=== PATIENT | female | born 1965 | race Caucasian/White ===

== ENCOUNTER → 2017-04-08 | Outpatient (CLI) | payer BC ==
[~2017-04-08] MED LIST: CLARITIN D TAB1 TAB PO; FIORICET 325 MG1 TA1 PO; NAPROSYN500 MG PO; NORCO 325 MG-51 TAB PO; ZOLOFT 50MG50 MG PO
== END ==
LOC: MC.RAD 09:15
DX: Z12.31 Encounter for screening mammogram for malignant neoplasm of breast (principal)

== ENCOUNTER 2017-04-15 11:46 | Day surgery (SDC) | payer BC ==
[~2017-04-15] VITALS: Ht 162.6 cm; Wt 59.5 kg
[2017-04-15 12:04] VITALS: BP 126/92; PULSE 80; TEMP 98.1
[2017-04-15 14:00] VITALS: BP 116/81; PULSE 85; TEMP 97.1
[2017-04-15 14:15] VITALS: BP 120/92; PULSE 84
[2017-04-15 14:30] VITALS: BP 107/84; PULSE 78
[2017-04-15 15:42] VITALS: BP 111/67; PULSE 76
== END 2017-04-15 14:49 | disposition home or self-care (01) ==
LOC: SDCO 11:46
DX: Z12.11 Encounter for screening for malignant neoplasm of colon (principal); Z88.1 Allergy status to other antibiotic agents; Z88.6 Allergy status to analgesic agent; K64.0 First degree hemorrhoids
CPT/HCPCS: OP; J2250; J3010; J7030

== ENCOUNTER → 2018-04-21 | Outpatient (CLI) | payer BC | LOC: MC.RAD 07:51 | DX: Z12.31 Encounter for screening mammogram for malignant neoplasm of breast (principal) ==

== ENCOUNTER 2019-08-10 08:25 | Day surgery (SDC) | payer BC ==
[~2019-08-10] VITALS: Ht 162.6 cm; Wt 57.7 kg
[2019-08-10] VITALS (13 sets, daily range): BP systolic 78–120; BP diastolic 46–80; PULSE 65–86; TEMP 97.7–98.2
--- NOTE | 2019-08-10 13:42 | NUR ---
Pt to [facility] via cart from OR. Pt drowsy, but awakens easily to verbal stimuli. Pt denies pain or nausea. Pt takes few sips of water without difficulties. in room. Incision to right upper back has carrera set intact. Site clean and dry. Will continue to monitor. Call light within reach.
--- NOTE | 2019-08-10 13:57 | NUR ---
Large amount of swelling (softball size) noted to right upper back around incision. Swelling is firm. notified and will be into see pt soon. Ice pack applied. Pt made NPO again. Educated pt and family on possible hematoma. They voice understanding.
--- NOTE | 2019-08-10 14:12 | NUR ---
into see pt and agree's pt has a hematoma. exits room to obtain portable US machine.
[2019-08-10] MEDS ORDERED: MOTRIN 600600 MG/TAB PO ×2 (14:15→16:08)
[2019-08-10] MEDS ORDERED: NORCO 325 MG-51 TAB PO (14:15)
--- NOTE | 2019-08-10 14:20 | NUR ---
at bedside using US machine at this time. Pt's blood pressure drops and pt is pale. Pt denies pain, nausea, or dizziness. 2nd bag LR 1000ml hung and opened wide. 2nd IV site to right hand started by Luzmaria BARKSDALE. Pt will be returning to OR for evacuation of hematoma esmer. Pt and agree and voice understanding.
--- NOTE | 2019-08-10 14:26 | NUR ---
Pt assisted to bed thao. Pt voids large amount without difficulties. Pericare provided. IV fluids slowed to 200ml/hr
--- NOTE | 2019-08-10 14:30 | NUR ---
Pt continues to rest. Denies needs at this time. Call light within reach.
--- NOTE | 2019-08-10 14:45 | NUR ---
Pt continues to rest. Denies needs. Call light within reach.
[2019-08-10] MEDS ORDERED: ULTRAM 50MG TAB50 MG PO (16:08)
--- NOTE | 2019-08-10 16:35 | NUR ---
TO RM 3 PER CART FROM PACU. ALERT ORIENTED X3, TALKING WITH STAFF AND . INCISION ON BACK CLEAN DRY INTACT WITH MACIAS SET. RECEIVED WATER AND TAKING SIPS. PATIENTS FATHER IN LAW TOOK PRESCRIPTION TO GET FILLED.
--- NOTE | 2019-08-10 16:45 | NUR ---
RECEIVED CANDIE. PUDDING AND MUFFIN. SITTING UP TALKING WITH .
--- NOTE | 2019-08-10 17:00 | NUR ---
ATE 100% AND TOLERATED WELL.
--- NOTE | 2019-08-10 17:30 | NUR ---
PATIENT AND RECEIVED DISCHARGE INSTRUCTIONS AND VERBALIZED UNDERSTANDING. DISCONTINUED IV/INT BILAT HANDS.
--- NOTE | 2019-08-10 17:45 | NUR ---
DISCHARGED PER WC BY NURSING STAFF TO PRIVATE CAR IN CARE OF .
== END 2019-08-10 18:00 | disposition home or self-care (01) ==
LOC: SDCO 08:25
DX: D21.6 Benign neoplasm of connective and other soft tissue of trunk, unspecified (principal); M96.840 Postprocedural hematoma of a musculoskeletal structure following a musculoskeletal system procedure; Z88.5 Allergy status to narcotic agent; Z88.1 Allergy status to other antibiotic agents; F32.9 Major depressive disorder, single episode, unspecified; Z80.9 Family history of malignant neoplasm, unspecified
CPT/HCPCS: J1885; J2250; J2405; J2704; J3010; J7120

== ENCOUNTER 2021-05-26 08:37 | Emergency (ER) | payer BC ==
[~2021-05-26] VITALS: Ht 160 cm; Wt 58.6 kg
[~2021-05-26 08:37] MED LIST changes: +MOTRIN 600600 MG/TAB PO; +ULTRAM 50MG TAB50 MG PO
[2021-05-26 08:42] VITALS: BP 129/87; TEMP 98.1
[2021-05-26 09:33] VITALS: PULSE 69
== END 2021-05-26 09:33 | disposition home or self-care (01) ==
LOC: COL.ER 08:37
DX: L08.9 Local infection of the skin and subcutaneous tissue, unspecified (principal); Z88.1 Allergy status to other antibiotic agents

== ENCOUNTER 2022-11-03 01:07 | Inpatient (IN) | payer BC ==
[~2022-11-03] VITALS: Ht 160 cm; Wt 58.7 kg
[2022-11-03] VITALS (10 sets, daily range): BP systolic 113–150; BP diastolic 74–87; PULSE 73–105; TEMP 98.2–98.6
[2022-11-03 01:38] LABS: COLLECTION METHOD CLEAN CATCH
[2022-11-03 01:41] LABS: BASO % 0.3 % (0.0-2.0); EOS % 0.4 % (0.0-4.0); GRAN % 77.3 % (42.2-75.2); HEMATOCRIT 42.4 % (37.0-47.0); HEMOGLOBIN 13.8 g/dl (12.5-16.0); LYMPH # 1.9 K/mm3 (1.2-3.4); LYMPH % 18.1 % (20.0-51.0); MEAN CELL VOLUME 84 fl (80.0-100.0); MEAN CORPUSCULAR HEMOGLOBIN 27 pg (27-31); MEAN CORPUSCULAR HGB CONC 33 g/dl (33.0-37.0); MEAN PLATELET VOLUME 9.6 fl (7.4-10.4); MONO # 0.4 K/mm3 (0.1-0.6); MONO % 3.5 % (1.7-9.3); PLATELET COUNT 285 K/mm3 (130-400); RED BLOOD COUNT 5.04 M/mm3 (4.10-5.30); REDCELL DISTRIBUTION WIDTH-CV 13.5 % (11.5-14.5)
[2022-11-03 01:58] LABS: ALANINE AMINOTRANSFERASE 18 U/L (0-55); ALBUMIN 4.2 gm/dL (3.5-5.0); ALKALINE PHOSPHATASE 81 U/L (40-150); ANION GAP 14 mmol/L (7-16); AST,SGOT 25 U/L (5-34); BILIRUBIN,TOTAL 0.7 mg/dL (0.2-1.2); BLOOD UREA NITROGEN 14 mg/dL (10-20); CALCIUM 9.1 mg/dL (8.4-10.2); CARBON DIOXIDE 24 mmol/L (22-29); CHLORIDE 102 mmol/L (98-107); CREATININE, serum 0.68 mg/dL (0.57-1.11); GLUCOSE 136 mg/dL (70-99); LIPASE 19 U/L (8-78); POTASSIUM 3.7 mmol/L (3.5-4.5); SODIUM 140 mmol/L (136-145); TOTAL PROTEIN 7.6 gm/dL (6.2-8.1)
[2022-11-03 02:02] LABS: PH 8.5 (5.0-8.5); URINE APPEARANCE Cloudy (CLEAR/HAZY); URINE BACTERIA Moderate /hpf (NONE SEEN); URINE BLOOD 1+ (NEGATIVE); URINE COLOR Yellow (YELLOW); URINE GLUCOSE Negative (NEGATIVE); URINE KETONE Negative (NEGATIVE); URINE NITRATE Negative (NEGATIVE); URINE PROTEIN(semi-quant) Negative (NEGATIVE); URINE UROBILINOGEN 0.2 E.U/dL (0.2-1.0)
[2022-11-03 02:03] LABS: SQUAMOUS EPITHELIAL 0-2 /hpf (0-10); URINE RBC 0-2 /hpf (0-2); URINE WBC 0-2 /hpf (0-2)
[2022-11-03 02:57] LABS: TROPONIN-I < 0.010 ng/mL (0.00-0.033)
[2022-11-03] MEDS ORDERED: NORVASC 5MG5 MG/TAB PO (03:53)
[2022-11-03] MEDS ORDERED: SINGULAIR 110 MG/TAB PO (03:54)
[2022-11-03] MEDS ORDERED: VOLTAREN 75 DR75 MG PO (03:54)
[2022-11-03] MEDS ORDERED: FLONASE NASAL S16 GM NS (03:54)
[2022-11-03] MEDS ORDERED: ZYRTEC5 MG PO (03:55)
--- NOTE | 2022-11-03 04:53 | NUR ---
PATIENT ARRIVED TO FLOOR @ 04:30AM. VSS. A&OX4. PATIENT COMPLAINS OF PAIN 05/03. RECEIVED PAIN MEDS DOWN IN ER BEFORE ARRIVAL. PATIENT HAS NO OTHER COMPLAINTS AT THIS TIME. PATIENT SETTLED IN BED AND RESTING. CALL LIGHT IN REACH.
--- NOTE | 2022-11-03 07:08 | NUR ---
NG TUBE PLACED PER ORDER. PATIENT TOLERATED OK. 100ML CLEAR FLUID OUT. LOW SUCTION.
--- NOTE | 2022-11-03 08:01 | NUR ---
pt resting in bed, reports pain increased after NG placed. there is 200ml of light pink output in the NG canister. bowel sounds are hypoactive, denies passing gas. fluids are infusing into her left AC at 125ml/hr. assisted pt to bathroom, gait steady. call light in reach.
--- NOTE | 2022-11-03 08:39 | NUR ---
pt reports increased pain and nausea. zofran given per emar. contacted dr meyers about changing frequency of zofran and morphine, new orders implemented.
--- NOTE | 2022-11-03 09:48 | NUR ---
pt resting comfortably in bed, reports pain and nausea have subsided.
--- NOTE | 2022-11-03 11:29 | NUR ---
pt reports pain relieved with dilauded. left the room and heard pt gagging, upon entry pt was hurled over basin producing saliva. no actual emesis. phenergan started.
--- NOTE | 2022-11-03 13:06 | NUR ---
SW met with patient to complete intake. Patient states that she lives in [facility] with her [phone] whom she appointed as DPOA on this day. Patient states that she does not utilize DME, is independent with ADL's and does not utilize HH services at this time. PCP is Dr. Antony. Patient states that she plans to return to her home upon DC. SW will continue to follow. DC plan: Home
--- NOTE | 2022-11-03 19:43 | NUR ---
REPORT RECIEVED FROM STEPHANIE BARKSDALE. PT RESTING IN BED WITH FAMILY AT BEDSIDE. PT REPORTED PAIN, PRN ADMINISTERED. NG IN PLACE TO LOW INT SUCTION. IVF RUNNING @ 125ML/HR. CALL LIGHT IN PLACE. ALL NEEDS MET AT THIS TIME.
--- NOTE | 2022-11-03 20:33 | NUR ---
PT RESTING IN BED. FAMILY LEFT FOR THE NIGHT. PRN RESOLVED PT PAIN AND SHE RATES PAIN A 0/10 NOW. NO OTHER CONCERNS OR COMPLAINTS. CALL LIGHT IN PLACE. ALL NEEDS MET AT THIS TIME.
--- NOTE | 2022-11-03 20:54 | NUR ---
SHIFT ASSESSMENT COMPLETE, SEE DOCUMENTATION.
[2022-11-04] VITALS (12 sets, daily range): BP systolic 133–150; BP diastolic 77–90; PULSE 74–96; TEMP 98–98.8
[2022-11-04 07:06] LABS: BASO % 0.2 % (0.0-2.0); EOS % 0.1 % (0.0-4.0); GRAN % 74.4 % (42.2-75.2); HEMOGLOBIN 12.3 g/dl (12.5-16.0); LYMPH # 1.6 K/mm3 (1.2-3.4); LYMPH % 19.2 % (20.0-51.0); MEAN CELL VOLUME 83 fl (80.0-100.0); MEAN CORPUSCULAR HEMOGLOBIN 28 pg (27-31); MEAN CORPUSCULAR HGB CONC 33 g/dl (33.0-37.0); MEAN PLATELET VOLUME 9.9 fl (7.4-10.4); MONO # 0.5 K/mm3 (0.1-0.6); MONO % 5.9 % (1.7-9.3); PLATELET COUNT 280 K/mm3 (130-400); RED BLOOD COUNT 4.43 M/mm3 (4.10-5.30); REDCELL DISTRIBUTION WIDTH-CV 13.3 % (11.5-14.5)
[2022-11-04 07:09] LABS: HEMATOCRIT 36.9 % (37.0-47.0)
[2022-11-04 07:37] LABS: ALBUMIN 3.5 gm/dL (3.5-5.0); BILIRUBIN,TOTAL 0.9 mg/dL (0.2-1.2); CALCIUM 8.7 mg/dL (8.4-10.2); CREATININE, serum 0.56 mg/dL (0.57-1.11); POTASSIUM 3.2 mmol/L (3.5-4.5); TOTAL PROTEIN 6.2 gm/dL (6.2-8.1)
[2022-11-04] MEDS ORDERED: ATARAX 25MG25 MG/TAB PO (09:01)
[2022-11-04] MEDS ORDERED: VITAMINC500CH PO (09:05)
[2022-11-04] MEDS ORDERED: MELATONIN5 M1 PO (09:09)
--- NOTE | 2022-11-04 09:23 | NUR ---
Vacuum Forming Machine Operator met with Patient at bedside to conduct Care Managment Assessment and discuss discharge planning. Patient lives with her in [place], [place] and is established with Dr. Antony for PCP. Patient is covered by [facility] for insurance and requests discharge medications be sent to [facility]. Patient denies the use of DME and endorses independent ADL/IADLs prior to admission. Patient does not have DPOA and declines form at this time. Discharge Plan: Home
--- NOTE | 2022-11-04 09:42 | NUR ---
PT UP TO BR VOIDED AND RETURNED TO BED. SBA. IV DILAUDID FOR PAIN. NG TUBE TO LIS WITH MINIMAL DRAINAGE IN COLLECTION. PT IS A/O X3. IV TO LFA INFUSING PER PUMP. ABDOMEN REMAINS TENDER AND DISTENDED.
--- NOTE | 2022-11-04 10:29 | NUR ---
Initial visit; Patient thanked [employer] for offering empathy, kindness and prayer for healing for Shavon and [employer] will keep her in her prayers by request. [employer] will follow-up while patient is here.
--- NOTE | 2022-11-04 17:45 | NUR ---
ROUNDED ON PT SEE COMPUTER FOR ORDERS. PT ADVANCING TO CLEAR LIQUIDS, NG CLAMPED.
--- NOTE | 2022-11-04 19:15 | NUR ---
REPORT RECIEVED FROM FIDEL BARKSDALE. PT RESTING IN BED WITH FAMILY AT BEDSIDE. PT EATING DINNER. NO C/O PAIN OR DISCOMFORT. CALL LIGHT IN PLACE. ALL NEEDS MET AT THIS TIME.
--- NOTE | 2022-11-04 20:24 | NUR ---
SHIFT ASSESSMENT COMPLETE, SEE DOCUMENTATION. PT RESTING IN BED WITH FAMILY AT BEDSIDE. PT DENIES PAIN OR DISCOMFORT AND REPORTS SHE FEELS BETTER THAN LAST NIGHT. CALL LIGHT IN PLACE. ALL NEEDS MET AT THIS TIME.
[2022-11-05 01:06] VITALS: BP_SYST 133
--- NOTE | 2022-11-05 02:34 | NUR ---
SPOKE WITH PT. SHE STATES SHE FEELS PAIN WHEN SHE NEEDS TO PASS GAS OR HAVE A BOWEL MOVEMENT. PT REPORTS SHE HAS HAD TWO BOWEL MOVEMENTS. PT STATES SHE IS FEELING MUCH BETTER. CALL LIGHT IN PLACE. ALL NEEDS MET AT THIS TIME.
[2022-11-05 03:21] VITALS: BP 128/80; PULSE 76; TEMP 97.8
[2022-11-05 04:45] VITALS: BP_SYST 128
[2022-11-05 07:36] VITALS: BP 145/90; PULSE 82; TEMP 98.2
--- NOTE | 2022-11-05 08:30 | NUR ---
PT RESTING IN BED A/OX4 WITH PAIN 2/10 THAT PT STATES IS GAS PAIN. DR. ROMERO CALLED TO DISCUSS PT STATUS. ORDERS TO REMOVE NG TUBE AND ADVANCE DIET TO FULL LIQUID. NG TUBE DISCONTINUED AT THIS TIME. NO ISSUES OR QUESTIONS. WILL CONTINUE TO MONITOR.
--- NOTE | 2022-11-05 10:23 | NUR ---
Follow-up visit; Patient thanked for offering a [place] and Prayer this morning. Shavon says she likes [employer] to visit. finds it a [place] to meet with Shavon and will follow-up while she is here.
[2022-11-05 11:46] VITALS: BP 145/82; PULSE 77; TEMP 98.4
[2022-11-05 13:16] LABS: CALCIUM 8.7 mg/dL (8.4-10.2); CREATININE, serum 0.54 mg/dL (0.57-1.11)
[2022-11-05 13:40] LABS: POTASSIUM 2.9 mmol/L (3.5-4.5)
[2022-11-05 16:39] VITALS: BP 148/84; PULSE 76; TEMP 98.4
--- NOTE | 2022-11-05 16:54 | NUR ---
DR. ROMERO CALLED TO [facility] PT STATUS. WILL PLACE ORDERS FOR DISCHARGE.
--- NOTE | 2022-11-05 17:30 | NUR ---
DISCHARGE INFORMATION RPOVIDED TO PT AND FAMILY. DICUSSED DEIT, WHEN TO CALL THE DR, AND WORK RELEASE NOTE. NO QUESTIONS AT THIS TIME. IV REMOVED. PT AND BELONGINGS ESCORTED OUT OF BUILDING AT THIS TIME.
== END 2022-11-05 17:30 | disposition home or self-care (01) | DRG 390 ==
LOC: COL.ER 01:07 → SURG 03:23 → COL.ER 03:23 → SURG 03:24 → COL.ER 03:28 → SURG 03:28
PROVIDERS: Emergency Medicine; ADMIT Surgery
DX: K56.609 Unspecified intestinal obstruction, unspecified as to partial versus complete obstruction (principal)
CPT/HCPCS: C9113; G0378; J1170; J2270; J2405; J2550; J7030; J7120; Q9967

== ENCOUNTER → 2023-12-02 | Outpatient (CLI) | payer BC ==
[~2023-12-02] MED LIST changes: +ATARAX 25MG25 MG/TAB PO; +FLONASE NASAL S16 GM NS; +MELATONIN5 M1 PO; +NORVASC 5MG5 MG/TAB PO; +SINGULAIR 110 MG/TAB PO; +VITAMINC500CH PO; +VOLTAREN 75 DR75 MG PO; +ZYRTEC5 MG PO
[2023-12-02 10:33] LABS: BASO % 0.6 % (0.0-2.0); EOS % 0.8 % (0.0-4.0); GRAN # 3.3 K/mm3 (1.4-6.5); GRAN % 63.6 % (42.2-75.2); HEMATOCRIT 41.9 % (37.0-47.0); HEMOGLOBIN 13.7 g/dl (12.5-16.0); LYMPH # 1.4 K/mm3 (1.2-3.4); LYMPH % 26.7 % (20.0-51.0); MEAN CELL VOLUME 85 fl (80.0-100.0); MEAN CORPUSCULAR HEMOGLOBIN 28 pg (27-31); MEAN CORPUSCULAR HGB CONC 33 g/dl (33.0-37.0); MEAN PLATELET VOLUME 9.5 fl (7.4-10.4); MONO # 0.4 K/mm3 (0.1-0.6); MONO % 7.9 % (1.7-9.3); PLATELET COUNT 281 K/mm3 (130-400); RED BLOOD COUNT 4.92 M/mm3 (4.10-5.30); REDCELL DISTRIBUTION WIDTH-CV 13.5 % (11.5-14.5)
[2023-12-02 10:58] LABS: ERYTHROCYTE SEDIMENTATION RATE 9 mm/hr (0-30)
== END ==
LOC: COL.LAB 09:51
PROVIDERS: Orthopaedic Surgery
DX: Z11.9 Encounter for screening for infectious and parasitic diseases, unspecified (principal)